=== PATIENT | female | born 1955 | race Caucasian/White ===

== ENCOUNTER 2023-12-30 08:45 | Observation (INO) ==
[~2023-12-30 08:45] MED LIST: Dexamethasone IV 4 MG/ML VIAL 1 ml VIAL ONE; Lidocaine 1% VIAL 10 MG/ML 30 ML VIAL ONE; Metoclopramide 5 MG/ML VIAL (10 mg) IV PRN; Midazolam 2 mg/2 ml VIAL 1 mg/ml 2 ml VIAL (2 mg) ONE; NS 0.45% 1000 ml BAG 1,000 ML IV SCH; Naloxone 0.4 mg VIAL 0.4 mg/ml 1 ml VIAL IV PRN; Ondansetron 4 mg VIAL 2 MG/ML 2 ml VIAL IV PRN; ROPIVACAINE 5 MG/ML 30 ML BTL (0.5%) ONE; fentaNYL 100 mcg/2 ml 50 MCG/ML VIAL IV PRN; fentaNYL 100 mcg/2 ml 50 MCG/ML VIAL ONE
[2023-12-30] MEDS ORDERED: Rocuronium 50 mg VIAL 10 mg/ml 5 ml VIAL (50 mg) ONE ×2 (09:28→12:24)
[2023-12-30] MEDS ORDERED: Lidocaine 2% PF 5 ML VIAL ONE (09:29)
[2023-12-30] MEDS ORDERED: Midazolam 2 mg/2 ml VIAL 1 mg/ml 2 ml VIAL (2 mg) ONE (09:30)
[2023-12-30] MEDS ORDERED: fentaNYL 100 mcg/2 ml 50 MCG/ML VIAL ONE (09:30)
[2023-12-30] MEDS ORDERED: ceFAZolin 2 GM in NS PREMIX 2 GM/100 ML BAG IVPB ONE (09:35)
[2023-12-30 09:59] LABS: Rapid COVID-19 Molecular Undetected (Undetected)
[2023-12-30] MEDS ORDERED: Lidocaine 1% w EPI 1:100,000 MDV 20 ML VIAL ONE (10:57)
[2023-12-30] MEDS ORDERED: Dexamethasone IV 4 MG/ML VIAL 1 ml VIAL ONE (12:16)
[2023-12-30] MEDS ORDERED: Ondansetron 4 mg VIAL 2 MG/ML 2 ml VIAL ONE (12:16)
[2023-12-30] MEDS ORDERED: Lactulose 30 ml UDC PO PRN (14:26)
[2023-12-30] MEDS ORDERED: Magnesium Hydroxide LIQ 30 ML UDC PO PRN (14:26)
[2023-12-30] MEDS ORDERED: Ondansetron 4 mg VIAL 2 MG/ML 2 ml VIAL IV PRN (14:26)
[2023-12-30] MEDS ORDERED: Morphine 2 MG/ML SYRINGE IV PRN (14:26)
[2023-12-30] MEDS ORDERED: Ondansetron ODT 4 mg TAB 4 MG TAB PO PRN (14:26)
[2023-12-30] MEDS: Acetaminophen IV 1 GM/100ML 1,000 MG/100 ML BAG IV ONE (14:44)
[2023-12-30] MEDS: Buffered Lidocaine 1% SYRIN 1 ml INTRADERM ONE (14:44)
[2023-12-30] MEDS: Scopolamine 1 mg/72hr PATCH TRANSDERM ONE (14:44)
[2023-12-30] MEDS: Lactated Ringers 1000 ml BAG 1,000 ML IV SCH ×2 (14:45→16:17)
[2023-12-30] MEDS: Magnesium Hydroxide LIQ 30 ML UDC PO SCH (20:09)
[2023-12-30] MEDS: ceFAZolin 1 GM ADVAN 1 GM in NS 0.9% 50 ML 50 ML IVPB SCH (20:10)
[2023-12-31 05:50] LABS: Hematocrit 32.5 % (35-45); Hemoglobin 11.4 g/dL (11.5-14.3); Mean Platelet Volume 8.4 fL (7.5-11.2); Platelet Count 168 10^3/uL (150-450)
[2023-12-31 06:15] LABS: Calcium 8.6 mg/dL (8.6-10.3); Creatinine, Serum 0.61 mg/dL (0.51-0.95); Potassium 4.4 mmol/L (3.5-5.0); eGFR CKD-EPI 96.1 (>60)
[2023-12-31] MEDS: Vitamin THERAPEUTIC TAB PO SCH (08:48)
== END 2023-12-31 13:00 | disposition home or self-care (01) ==
LOC: SSU 08:45 → OR 08:45
PROVIDERS: ADMIT Orthopaedic Surgery Sports Medicine; ATTEND Orthopaedic Surgery Sports Medicine